=== PATIENT | female | born 1945 | race Two or more races ===

== ENCOUNTER 2023-02-17 19:10 | Inpatient (IN) | payer OTHER ==
[~2023-02-17] VITALS: Ht 152.4 cm; Wt 60.1 kg
[~2023-02-17 19:10] MED LIST: ACET-1080 PO; CARV12.544 PO; LEVO50TA7 PO; MEMA28CA15 PO
[2023-02-17 20:53] LABS: Urine Bacteria NONE SEEN /hpf (None Seen); Urine Blood Negative /uL (Negative); Urine Specific Gravity 1.002 (1.001-1.035); Urine WBC 2 /hpf (0 - 5)
[2023-02-17 21:12] LABS: Basophils # (auto) 0 10 ^3/uL (0-0.2); Basophils % (auto) 0.4 % (0.0-2.0); Eosinophils # (auto) 0.1 10 ^3/uL (0-0.8); Eosinophils % (auto) 2.4 % (0.0-7.0); Hematocrit 34.4 % (36.0-46.0); Hemoglobin 11.7 g/dL (12.2-16.2); Lymphocytes # (auto) 3.2 10 ^3/uL (0.4-5.4); Lymphocytes % (auto) 52.5 % (10.0-50.0); Mean Corpuscular Hemoglobin 29.3 pg (28.0-32.0); Mean Corpuscular Hgb Conc. 33.9 g/dL (32.0-36.0); Mean Corpuscular Volume 86.5 fL (80.0-100.0); Monocytes # (auto) 0.6 10 ^3/uL (0-1.3); Monocytes % (auto) 10.4 % (0.0-12.0); Neutrophils # (auto) 2.1 10 ^3/uL (1.6-8.6); Neutrophils % (auto) 34.3 % (37.0-80.0); Nucleated Red Blood Cells % 0.1 %; Red Blood Cells 3.98 10^6/uL (4.0-5.20); Red Cell Distribution Width 14.4 % (11.8-14.3); White Blood Cell 6.1 10^3/uL (4.4-10.8)
[2023-02-17 21:13] LABS: Albumin 3.4 g/dL (3.4-5.0); Calcium 10.4 mg/dL (8.5-10.1); Magnesium 1.8 mg/dL (1.6-2.6); Potassium 3.9 mmol/L (3.5-5.1)
[2023-02-17 21:16] LABS: BUN/Creatinine Ratio 20.9 (10.0-20.0); Bilirubin, Total 0.3 mg/dL (0.2-1.0); Total Protein 7.1 g/dL (6.4-8.2)
[2023-02-18] MEDS ORDERED: IOHEXOL 300 MG/ML 100ML BOTTLE IJ ONE (09:11)
[2023-02-18] MEDS ORDERED: MORPHINE SULFATE INJ 2 MG/ml SYRG IV PRN (09:30)
[2023-02-18] MEDS ORDERED: NITROGLYCERIN 0.4 MG SL TAB SL PRN (09:30)
[2023-02-18] MEDS: ENOXAPARIN SOD 40 MG/0.4 ML SYRINGE SC SCH (09:54)
[2023-02-18] MEDS: SODIUM CHLORIDE 0.9% 1,000 ML IV SCH (09:54)
[2023-02-18] MEDS: LEVOTHYROXINE SODIUM 50 MCG TAB PO SCH (09:55)
[2023-02-18] MEDS: MEMANTINE HCL 5 MG TAB PO SCH ×2 (09:55→22:52)
[2023-02-18] MEDS: CARVEDILOL 12.5 MG TAB PO SCH ×2 (09:58→22:00)
[2023-02-18] MEDS ORDERED: MEMANTINE HCL 28 MG PO SCH (10:00)
[2023-02-18 10:48] LABS: Free T3 2.55 pg/mL (2.3-4.2); Free T4 (Free Thyroxine) 1.17 ng/dL (0.89-1.76)
[2023-02-18 11:19] LABS: Cholesterol 171 mg/dL (< 200); HDL Cholesterol 66 mg/dL (40-59); LDL Cholesterol 92 mg/dL (< 100); Triglycerides 150 mg/dL (< 150)
[2023-02-18] MEDS: ACETAMINOPHEN 325 MG TAB PO PRN (17:44)
[2023-02-18 22:00] VITALS: BP 145/81
[2023-02-19 00:42] LABS: Folate (Folic Acid) 12.92 ng/mL (5.38-24)
[2023-02-19] MEDS: SODIUM CHLORIDE 0.9% 1,000 ML IV SCH (02:10)
[2023-02-19 03:21] VITALS: BP 145/81
[2023-02-19 05:11] VITALS: BP 154/87
[2023-02-19 07:11] LABS: Calcium 9.6 mg/dL (8.5-10.1); Potassium 3.9 mmol/L (3.5-5.1)
[2023-02-19 07:17] LABS: Albumin 2.9 g/dL (3.4-5.0); BUN/Creatinine Ratio 16.9 (10.0-20.0); Bilirubin, Total 0.7 mg/dL (0.2-1.0); Total Protein 6.3 g/dL (6.4-8.2)
[2023-02-19 08:10] LABS: Basophils # (auto) 0.1 10 ^3/uL (0-0.2); Basophils % (auto) 1.4 % (0.0-2.0); Eosinophils # (auto) 0.1 10 ^3/uL (0-0.8); Eosinophils % (auto) 2.4 % (0.0-7.0); Hematocrit 35.8 % (36.0-46.0); Hemoglobin 11.9 g/dL (12.2-16.2); Lymphocytes # (auto) 2.5 10 ^3/uL (0.4-5.4); Mean Corpuscular Hemoglobin 29.4 pg (28.0-32.0); Mean Corpuscular Hgb Conc. 33.1 g/dL (32.0-36.0); Mean Corpuscular Volume 88.6 fL (80.0-100.0); Monocytes # (auto) 0.5 10 ^3/uL (0-1.3); Monocytes % (auto) 10.3 % (0.0-12.0); Neutrophils % (auto) 37.9 % (37.0-80.0); Nucleated Red Blood Cells % 0.1 %; Red Blood Cells 4.04 10^6/uL (4.0-5.20); Red Cell Distribution Width 14.8 % (11.8-14.3); White Blood Cell 5.2 10^3/uL (4.4-10.8)
[2023-02-19 08:30] VITALS: BP 160/81
[2023-02-19] MEDS: ACETAMINOPHEN 325 MG TAB PO PRN (09:24)
[2023-02-19] MEDS: MEMANTINE HCL 5 MG TAB PO SCH (09:24)
[2023-02-19] MEDS: ENOXAPARIN SOD 40 MG/0.4 ML SYRINGE SC SCH (09:25)
[2023-02-19] MEDS: LEVOTHYROXINE SODIUM 50 MCG TAB PO SCH (09:25)
[2023-02-19 13:21] VITALS: BP 160/81
[2023-02-19] MEDS ORDERED: ASPI81TA10 PO (13:31)
[2023-02-19] MEDS ORDERED: AMOX500T86 PO (13:31)
[2023-02-19 16:53] VITALS: BP 146/84
== END 2023-02-19 17:10 | disposition home or self-care (01) | DRG 153 ==
LOC: ER 19:13 → TELE 02-18 09:30 → TELE-CENTR 02-18 23:02
PROVIDERS: ADMIT Registered Nurse; ATTEND Hospitalist
DX: H70.91 Unspecified mastoiditis, right ear (principal); G43.909 Migraine, unspecified, not intractable, without status migrainosus; E03.9 Hypothyroidism, unspecified; F03.90 Unspecified dementia, unspecified severity, without behavioral disturbance, psychotic disturbance, mood disturbance, and anxiety; H93.19 Tinnitus, unspecified ear; W01.190A Fall on same level from slipping, tripping and stumbling with subsequent striking against furniture, initial encounter; I11.0 Hypertensive heart disease with heart failure; R90.82 White matter disease, unspecified; W01.0XXA Fall on same level from slipping, tripping and stumbling without subsequent striking against object, initial encounter; Y93.89 Activity, other specified; Y92.89 Other specified places as the place of occurrence of the external cause; Y99.8 Other external cause status; Z79.899 Other long term (current) drug therapy; Z80.0 Family history of malignant neoplasm of digestive organs; Z82.49 Family history of ischemic heart disease and other diseases of the circulatory system; Z86.73 Personal history of transient ischemic attack (TIA), and cerebral infarction without residual deficits; Z90.49 Acquired absence of other specified parts of digestive tract
CPT/HCPCS: 36415; 70450; 70551; 71045; 71260; 80053; 80061; 81001; 82607; 82746; 83036; 83735; 83880; 84439; 84443; 84481; 84484; 85025; 93005; 93306; 93886; 95819; 96372; 97163; G0378

== ENCOUNTER 2024-02-07 13:36 | Emergency (ER) | payer OTHER, MEDICAID ==
[~2024-02-07] VITALS: Ht 142.2 cm; Wt 60.9 kg
[~2024-02-07 13:36] MED LIST changes: +ALBU108A5 IN; +AMOX500T86 PO; +ASPI81TA10 PO; +AUG875T PO
[2024-02-07 14:15] LABS: Alanine Aminotransferase 18 U/L (7-40); Albumin 4.1 g/dL (3.2-4.8); Alkaline Phosphatase 91 U/L (46-116); Anion Gap 8 (5-15); Aspartate Aminotransferase 16 U/L (13-40); BUN/Creatinine Ratio 11.5 (10.0-20.0); Blood Urea Nitrogen 9 mg/dL (9-23); Calcium 11.3 mg/dL (8.5-10.1); Carbon Dioxide 25 mmol/L (20-30); Chloride 107 mmol/L (98-107); Glucose 97 mg/dL (74-106); Potassium 3.8 mmol/L (3.5-5.1); Sodium 140 mmol/L (136-145)
[2024-02-07 14:16] LABS: Bilirubin, Total 0.4 mg/dL (0.2-1.0); Total Protein 6.3 g/dL (5.7-8.2)
[2024-02-07 14:36] LABS: Basophils # (auto) 0 10 ^3/uL (0-0.2); Basophils % (auto) 0.6 % (0.0-2.0); Eosinophils # (auto) 0 10 ^3/uL (0-0.8); Eosinophils % (auto) 0.5 % (0.0-7.0); Hematocrit 37.4 % (36.0-46.0); Hemoglobin 12.4 g/dL (12.2-16.2); Lymphocytes # (auto) 2.2 10 ^3/uL (0.4-5.4); Lymphocytes % (auto) 26.6 % (10.0-50.0); Mean Corpuscular Hemoglobin 30.3 pg (28.0-32.0); Mean Corpuscular Volume 91.7 fL (80.0-100.0); Monocytes # (auto) 0.7 10 ^3/uL (0-1.3); Monocytes % (auto) 8.9 % (0.0-12.0); Neutrophils # (auto) 5.3 10 ^3/uL (1.6-8.6); Neutrophils % (auto) 63.4 % (37.0-80.0); Nucleated Red Blood Cells % 0.1 %; Red Blood Cells 4.07 10^6/uL (4.0-5.20); White Blood Cell 8.3 10^3/uL (4.4-10.8)
[2024-02-07] MEDS: NITROGLYCERIN 0.4 MG SL TAB SL ONE (15:24)
[2024-02-07 15:26] VITALS: PULSE 19; RESP 97; O2SAT 97
[2024-02-07 15:43] LABS: Urine Bacteria None Seen /hpf (None Seen)
[2024-02-07 15:58] LABS: Urine Amorphous Crystal FEW /hpf (None Seen); Urine Blood Negative /uL (Negative); Urine Clarity Turbid (Clear); Urine Color Colorless (Yellow); Urine Protein, UAD Negative (Negative); Urine Specific Gravity 1.007 (1.001-1.035); Urine Urobilinogen Normal (Negative); Urine WBC 121 /hpf (0 - 5)
[2024-02-07] MEDS: SULFAMETHOX W/TRIMETH(800/160MG) DS TAB PO ONE (18:06)
[2024-02-07] MEDS ORDERED: ACET500T58 PO (18:08)
[2024-02-07] MEDS ORDERED: BACDST PO (18:08)
[2024-02-07] MEDS ORDERED: IBUP1TAB5 PO (18:08)
[2024-02-07 18:10] VITALS: BP 156/82; PULSE 72; RESP 17; TEMP 98.9; O2SAT 100
[2024-02-07] MEDS ORDERED: HYDROcodone-ACET 5/325MG TAB PO ONE (18:15)
== END 2024-02-07 18:15 | disposition home or self-care (01) ==
LOC: ER 13:36
DX: R07.89 Other chest pain (principal); N39.0 Urinary tract infection, site not specified; I11.0 Hypertensive heart disease with heart failure; I50.9 Heart failure, unspecified; M19.90 Unspecified osteoarthritis, unspecified site; K21.9 Gastro-esophageal reflux disease without esophagitis; F03.90 Unspecified dementia, unspecified severity, without behavioral disturbance, psychotic disturbance, mood disturbance, and anxiety; Z98.890 Other specified postprocedural states; Z79.899 Other long term (current) drug therapy
CPT/HCPCS: 36415; 71045; 80053; 81001; 84484; 93005

== ENCOUNTER 2024-02-20 10:17 | Inpatient (IN) | payer OTHER, MEDICAID ==
[~2024-02-20] VITALS: Ht 144.8 cm; Wt 53.8 kg
[~2024-02-20 10:17] MED LIST changes: +ACET500T58 PO; +BACDST PO; +IBUP1TAB5 PO
[2024-02-20 10:39] VITALS: PULSE 70; RESP 26; O2SAT 97
[2024-02-20 10:58] LABS: Basophils # (auto) 0.1 10 ^3/uL (0-0.2); Basophils % (auto) 0.8 % (0.0-2.0); Chloride 107 mmol/L (98-107); Eosinophils # (auto) 0 10 ^3/uL (0-0.8); Eosinophils % (auto) 0.5 % (0.0-7.0); Hemoglobin 12.2 g/dL (12.2-16.2); Lymphocytes # (auto) 2.3 10 ^3/uL (0.4-5.4); Lymphocytes % (auto) 35.2 % (10.0-50.0); Mean Corpuscular Hgb Conc. 33.1 g/dL (32.0-36.0); Mean Corpuscular Volume 93.5 fL (80.0-100.0); Monocytes # (auto) 0.6 10 ^3/uL (0-1.3); Monocytes % (auto) 8.9 % (0.0-12.0); Neutrophils # (auto) 3.6 10 ^3/uL (1.6-8.6); Neutrophils % (auto) 54.6 % (37.0-80.0); Nucleated Red Blood Cells % 0.1 %; Potassium 3.9 mmol/L (3.5-5.1); Red Blood Cells 3.95 10^6/uL (4.0-5.20); Sodium 137 mmol/L (136-145); White Blood Cell 6.7 10^3/uL (4.4-10.8)
[2024-02-20 10:59] LABS: Anion Gap 2 (5-15); Carbon Dioxide 28 mmol/L (20-30)
[2024-02-20 11:00] LABS: Calcium 11.8 mg/dL (8.5-10.1)
[2024-02-20 11:04] LABS: Blood Urea Nitrogen 16 mg/dL (9-23); Glucose 100 mg/dL (74-106)
[2024-02-20] MEDS ORDERED: ONDANSETRON HCL 4 MG/2 ML VIAL IV PRN (13:30)
[2024-02-20] MEDS ORDERED: ACETAMINOPHEN 325 MG TAB PO PRN (13:30)
[2024-02-20] MEDS ORDERED: MORPHINE SULFATE INJ 2 MG/ml SYRG IV PRN (13:30)
[2024-02-20] MEDS ORDERED: NITROGLYCERIN 0.4 MG SL TAB SL PRN (13:30)
[2024-02-20] MEDS: SOD CHL 0.45% 1,000 ML IV ONE (13:58)
[2024-02-20 13:59] LABS: Urine Bacteria FEW /hpf (None Seen); Urine Blood Negative /uL (Negative); Urine Budding Yeast OCCASIONAL /hpf (None Seen); Urine Clarity Clear (Clear); Urine Color Light-Yellow (Yellow); Urine Protein, UAD Negative (Negative); Urine Specific Gravity 1.007 (1.001-1.035); Urine Urobilinogen Normal (Negative); Urine WBC 33 /hpf (0 - 5); Urine WBC Clumps PRESENT /hpf (None Seen)
[2024-02-20 18:12] VITALS: BP 130/20; PULSE 70; RESP 18; TEMP 98.1; O2SAT 95
[2024-02-20 18:22] VITALS: BP 130/62; PULSE 70; RESP 18; TEMP 98.1; O2SAT 95
[2024-02-20 18:25] LABS: Free T4 (Free Thyroxine) 1.18 ng/dL (0.89-1.76)
[2024-02-20 18:26] LABS: Folate (Folic Acid) 19.38 ng/mL (>5.38)
[2024-02-20 20:00] VITALS: PULSE 77; PULSE 80; RESP 18
[2024-02-20 21:00] VITALS: BP 102/53; PULSE 80; RESP 18; TEMP 98.3; O2SAT 95
[2024-02-20] MEDS: MORPHINE SULFATE INJ 2 MG/ml SYRG IV PRN (22:56)
[2024-02-20] MEDS: diphenhdrAMINE HCL 50 MG/1 ML VL IV PRN (23:27)
[2024-02-21] VITALS (7 sets, daily range): BP systolic 107–131; BP diastolic 45–67; PULSE 62–71; RESP 14–18; TEMP 97–97.9; O2SAT 95–98
[2024-02-21] MEDS ORDERED: IOHEXOL 350 MG/ML 100ML IJ ONE (08:31)
[2024-02-21 09:06] LABS: RPR Non Reactive (Non Reactive)
[2024-02-21] MEDS: ENOXAPARIN SOD 40 MG/0.4 ML SYRINGE SC SCH (09:08)
[2024-02-21] MEDS: cefTRIAXone 1GM/50ML D5W 50 ML IV SCH (09:09)
[2024-02-21] MEDS: HYDROcodone-ACET 5/325MG TAB PO PRN (13:53)
[2024-02-23 10:01] LABS: Hepatitis B Surface Antigen Negative (Negative)
[2024-02-23 10:22] LABS: Hepatitis C Antibody Negative (Negative)
== END 2024-02-21 19:20 | disposition home health service (06) | DRG 206 ==
LOC: EDBD 10:17 → ER 10:17 → TELE 13:28 → TELE-EAST 18:21
PROVIDERS: ADMIT Internal Medicine; ATTEND Internal Medicine
DX: M94.0 Chondrocostal junction syndrome [Tietze] (principal); I24.9 Acute ischemic heart disease, unspecified; K21.9 Gastro-esophageal reflux disease without esophagitis; Z96.659 Presence of unspecified artificial knee joint; E03.9 Hypothyroidism, unspecified; G30.9 Alzheimer's disease, unspecified; F02.80 Dementia in other diseases classified elsewhere, unspecified severity, without behavioral disturbance, psychotic disturbance, mood disturbance, and anxiety; I50.9 Heart failure, unspecified; I11.0 Hypertensive heart disease with heart failure; E83.52 Hypercalcemia; Z79.1 Long term (current) use of non-steroidal anti-inflammatories (NSAID); Z79.899 Other long term (current) drug therapy; Z90.49 Acquired absence of other specified parts of digestive tract
CPT/HCPCS: 36415; 71045; 71275; 80048; 81001; 82607; 82746; 82962; 83880; 84439; 84443; 84484; 85025; 85379; 86592; 86803; 87340; 93005; 93306; 96360; 97163; G0378

== ENCOUNTER 2024-05-06 22:55 | Inpatient (IN) | payer OTHER, MEDICAID ==
[~2024-05-06] VITALS: Ht 165.1 cm; Wt 62.0 kg
[2024-05-07] VITALS (13 sets, daily range): BP systolic 123–157; BP diastolic 65–80; PULSE 74–95; RESP 16–20; TEMP 97.4–99.5; O2SAT 93–98
[2024-05-07] LABS: Basophils # (auto) 0 10 ^3/uL (0-0.2); Basophils % (auto) 0.4 % (0.0-2.0); Eosinophils # (auto) 0 10 ^3/uL (0-0.8); Eosinophils % (auto) 0.1 % (0.0-7.0); Hematocrit 37.9 % (36.0-46.0); Hemoglobin 12.7 g/dL (12.2-16.2); Lymphocytes # (auto) 1.4 10 ^3/uL (0.4-5.4); Lymphocytes % (auto) 16.8 % (10.0-50.0); Mean Corpuscular Hemoglobin 30.5 pg (28.0-32.0); Mean Corpuscular Hgb Conc. 33.4 g/dL (32.0-36.0); Mean Corpuscular Volume 91.3 fL (80.0-100.0); Monocytes # (auto) 0.7 10 ^3/uL (0-1.3); Monocytes % (auto) 8.9 % (0.0-12.0); Neutrophils # (auto) 5.9 10 ^3/uL (1.6-8.6); Neutrophils % (auto) 73.8 % (37.0-80.0); Red Blood Cells 4.15 10^6/uL (4.0-5.20); Red Cell Distribution Width 12.8 % (11.8-14.3); White Blood Cell 8.1 10^3/uL (4.4-10.8)
[2024-05-07 00:11] LABS: Chloride 102 mmol/L (98-107); Potassium 3.4 mmol/L (3.5-5.1); Sodium 133 mmol/L (136-145)
[2024-05-07 00:12] LABS: Anion Gap 8 (5-15); Calcium 10.7 mg/dL (8.7-10.4); Carbon Dioxide 23 mmol/L (20-30)
[2024-05-07 00:17] LABS: BUN/Creatinine Ratio 9.1 (10.0-20.0); Blood Urea Nitrogen 7 mg/dL (9-23); Glucose 127 mg/dL (74-106)
[2024-05-07] MEDS ORDERED: ACETAMINOPHEN 325 MG TAB PO PRN (03:30)
[2024-05-07] MEDS ORDERED: ALBUTEROL SULF 2.5 MG/0.5ML(0.5%) NEB SOLN NEB PRN (03:30)
[2024-05-07] MEDS ORDERED: MORPHINE SULFATE INJ 2 MG/ml SYRG IV PRN (03:30)
[2024-05-07] MEDS ORDERED: DOCUSATE SOD 100 MG CAP PO PRN (03:30)
[2024-05-07] MEDS ORDERED: ONDANSETRON HCL 4 MG/2 ML VIAL IV PRN (03:30)
[2024-05-07] MEDS ORDERED: NITROGLYCERIN 0.4 MG SL TAB SL PRN (03:30)
[2024-05-07] MEDS ORDERED: IPRATROPIUM BROM 0.5 MG/2.5ML INH SOL NEB PRN (03:30)
[2024-05-07 05:11] LABS: Rapid Influenza A Negative (Negative); Rapid Influenza B Negative (Negative)
[2024-05-07 05:14] LABS: COVID19 ANTIGEN SOFIA FIA POSITIVE (NEGATIVE)
[2024-05-07] MEDS: LEVOTHYROXINE SODIUM 50 MCG TAB PO SCH (07:07)
[2024-05-07] MEDS: MEMANTINE HCL 5 MG TAB PO SCH (08:38)
[2024-05-07] MEDS: ENOXAPARIN SOD 40 MG/0.4 ML SYRINGE SC SCH (08:39)
[2024-05-07] MEDS: SODIUM CHLORIDE 0.9% 250 ML IV ONE (10:00)
[2024-05-07 12:12] LABS: Basophils # (auto) 0.1 10 ^3/uL (0-0.2); Basophils % (auto) 0.8 % (0.0-2.0); Eosinophils # (auto) 0 10 ^3/uL (0-0.8); Eosinophils % (auto) 0.1 % (0.0-7.0); Hematocrit 35.2 % (36.0-46.0); Lymphocytes # (auto) 1.9 10 ^3/uL (0.4-5.4); Lymphocytes % (auto) 27.2 % (10.0-50.0); Mean Corpuscular Hgb Conc. 34.2 g/dL (32.0-36.0); Mean Corpuscular Volume 90.6 fL (80.0-100.0); Monocytes # (auto) 0.9 10 ^3/uL (0-1.3); Monocytes % (auto) 13.4 % (0.0-12.0); Neutrophils # (auto) 4.1 10 ^3/uL (1.6-8.6); Neutrophils % (auto) 58.5 % (37.0-80.0); Nucleated Red Blood Cells % 0.1 %; Red Blood Cells 3.88 10^6/uL (4.0-5.20); Red Cell Distribution Width 12.8 % (11.8-14.3)
[2024-05-07 12:19] LABS: Chloride 101 mmol/L (98-107); Potassium 3.5 mmol/L (3.5-5.1); Sodium 132 mmol/L (136-145)
[2024-05-07 12:20] LABS: Anion Gap 4 (5-15); Calcium 10.4 mg/dL (8.7-10.4); Carbon Dioxide 27 mmol/L (20-30)
[2024-05-07 12:25] LABS: BUN/Creatinine Ratio 13.5 (10.0-20.0); Blood Urea Nitrogen 10 mg/dL (9-23); Glucose 119 mg/dL (74-106)
[2024-05-07] MEDS: DexAMETHasone 4 MG TAB PO ONE (17:22)
[2024-05-07] MEDS: CARVEDILOL 12.5 MG TAB PO SCH (22:17)
[2024-05-08] VITALS (12 sets, daily range): BP systolic 101–137; BP diastolic 52–76; PULSE 62–84; RESP 15–20; TEMP 97.3–98; O2SAT 94–97
[2024-05-08 06:30] LABS: Basophils # (auto) 0 10 ^3/uL (0-0.2); Basophils % (auto) 0.7 % (0.0-2.0); Eosinophils # (auto) 0 10 ^3/uL (0-0.8); Eosinophils % (auto) 0.1 % (0.0-7.0); Hematocrit 38.7 % (36.0-46.0); Hemoglobin 13.1 g/dL (12.2-16.2); Lymphocytes % (auto) 21.9 % (10.0-50.0); Mean Corpuscular Hemoglobin 30.9 pg (28.0-32.0); Mean Corpuscular Hgb Conc. 33.8 g/dL (32.0-36.0); Mean Corpuscular Volume 91.3 fL (80.0-100.0); Monocytes # (auto) 0.2 10 ^3/uL (0-1.3); Monocytes % (auto) 4.1 % (0.0-12.0); Neutrophils # (auto) 3.2 10 ^3/uL (1.6-8.6); Neutrophils % (auto) 73.2 % (37.0-80.0); Nucleated Red Blood Cells % 0.4 %; Red Blood Cells 4.24 10^6/uL (4.0-5.20); Red Cell Distribution Width 12.6 % (11.8-14.3); White Blood Cell 4.4 10^3/uL (4.4-10.8)
[2024-05-08 06:44] LABS: Anion Gap 6 (5-15); Carbon Dioxide 26 mmol/L (20-30); Chloride 104 mmol/L (98-107); Potassium 4.2 mmol/L (3.5-5.1); Sodium 136 mmol/L (136-145)
[2024-05-08 06:46] LABS: Calcium 11.4 mg/dL (8.7-10.4)
[2024-05-08 06:50] LABS: BUN/Creatinine Ratio 17.3 (10.0-20.0); Blood Urea Nitrogen 13 mg/dL (9-23); Glucose 175 mg/dL (74-106)
[2024-05-08] MEDS: DexAMETHasone 4 MG TAB PO SCH (08:27)
[2024-05-08] MEDS: guaiFENesin-DM 100/10mg/5ml SYR PO PRN (16:40)
[2024-05-09] VITALS (8 sets, daily range): BP systolic 109–152; BP diastolic 72–88; PULSE 67–85; RESP 18–20; TEMP 97.9–98.3; O2SAT 95–97
[2024-05-09] MEDS: ALBUTEROL SULF HFA 90MCG INH 200DOSE IN PRN (07:22)
[2024-05-09] MEDS ORDERED: DEX4T PO (11:41)
[2024-05-09] MEDS ORDERED: FAMO-161 PO (11:41)
[2024-05-09] MEDS ORDERED: ALBU108A5 IN (11:41)
[2024-05-09 15:26] LABS: COVID19 ANTIGEN SOFIA FIA POSITIVE (NEGATIVE)
== END 2024-05-09 19:44 | disposition home or self-care (01) | DRG 178 ==
LOC: ER 22:55 → TELE 05-07 03:46 → TELE-WESTW 05-07 06:32
PROVIDERS: ADMIT Nurse Practitioner Family; ATTEND Hospitalist
DX: U07.1 COVID-19 (principal); E87.1 Hypo-osmolality and hyponatremia; I11.0 Hypertensive heart disease with heart failure; I50.9 Heart failure, unspecified; F03.90 Unspecified dementia, unspecified severity, without behavioral disturbance, psychotic disturbance, mood disturbance, and anxiety; E03.9 Hypothyroidism, unspecified; E87.6 Hypokalemia; K21.9 Gastro-esophageal reflux disease without esophagitis; R73.9 Hyperglycemia, unspecified; Z90.49 Acquired absence of other specified parts of digestive tract; Z80.42 Family history of malignant neoplasm of prostate; Z80.0 Family history of malignant neoplasm of digestive organs; Z82.49 Family history of ischemic heart disease and other diseases of the circulatory system
CPT/HCPCS: 36415; 71045; 80048; 83880; 84484; 85025; 87426; 87804; 94640; 97116; 97163; 97530; G0378

== ENCOUNTER 2025-09-03 20:47 | Inpatient (IN) | payer OTHER, MEDICAID ==
[~2025-09-03] VITALS: Ht 147.3 cm; Wt 61.0 kg
[~2025-09-03 20:47] MED LIST changes: -ACET500T58 PO; -AMOX500T86 PO; -ASPI81TA10 PO; -AUG875T PO; -BACDST PO; +DEX4T PO; +FAMO-161 PO; -IBUP1TAB5 PO
--- NOTE | 2025-09-03 21:14 | ED.PDOC ---
History of Present Illness HPI Comments 80-year-old female who came to ER for generalized weakness. Patient brought here by family members who will give history. Does have history of hypertension, congestive heart failure and dementia. About 3 hours ago, patient got mad, in about an hour ago prior to arrival, patient is started not talking and walking. Patient does not appear to be in any pain. Patient brought in because patient still refuses to talk or walk Chief Complaint: General Weakness Time Seen by MD: 21:14 Primary Care Provider: MUMTAZ Barron Notes: Nurses Notes Allergies: Coded Allergies: NO KNOWN ALLERGIES (Unverified , 10/13/19) Home Meds Active Scripts Albuterol Sulfate (Albuterol Sulfate Hfa) 108 Mcg/Act Aer, 108 MCG IN Q6HPRN PRN, #1 AER Prov:MARIE GANDARA MD 05/09/24 Famotidine (Pepcid AC) 20 Mg Tab, 20 MG PO DAILY, #14 TAB Prov:MARIE GANDARA MD 05/09/24 Dexamethasone (Decadron) 4 Mg Tb, 4 TAB PO DAILY, #5 TAB Prov:MARIE GANDARA MD 05/09/24 Reported Medications Acetaminophen (Tylenol 8 Hour Arthritis) 650 Mg Tab, 650 MG PO TIDP PRN for mi, TAB 10/13/19 Levothyroxine Sodium (Levothyroxine Sodium) 50 Mcg Tab, 50 MCG PO DAILY, TAB 10/13/19 Memantine HCl (Memantine Hydrochloride E) 28 Mg Cap, 28 MG PO DAILY, CAP 03/12/19 Carvedilol (Carvedilol) 12.5 Mg Tab, 12.5 MG PO Q12HR for 30 Days, MG 03/12/19 Information Source: Patient Mode of Arrival: Wheelchair Past Medical History PAST MEDICAL HISTORY: Arthritis, CHF, Dementia, GERD, HTN, Thyroid Surgical History: Cholecystectomy AFFILIATE MANAGER History: No Pertinent AFFILIATE MANAGER History Family History Family History: Reviewed,noncontributory to illness Social History Smoker: Non-Smoker Alcohol: Rarely Drugs: Denies Drug Use Lives In: Home Unable to Obtain due to: Dementia Physical Exam General Appearance: No Apparent Distress, Normal HEENT: Normal ENT Inspection, Pharynx Normal, TMs Normal Neck: Full Range of Motion, Non-Tender, Normal, Normal Inspection Respiratory: Chest Non-Tender, Lungs Clear, No Accessory Muscle Use, No Respiratory Distress, Normal Breath Sounds Cardiovascular: No Edema, No JVD, No Murmur, No Gallop, Normal Peripheral Pulses, Regular Rate/Rhythm Breast Exam: Deferred Gastrointestinal: No Organomegaly, Non Tender, No Pulsatile Mass, Normal Bowel Sounds, Soft Genitalia: Deferred Pelvic: Deferred Rectal: Deferred Extremities: No calf tenderness, Normal capillary refill, Normal inspection, Normal range of motion, Non-tender, No pedal edema Musculoskeletal : Apperance: Normal Neurologic: Alert, oil well services supervisor II-XII nml as Tested, No Motor Deficits, Normal Affect, Normal Mood, No Sensory Deficits Cerebellar Function: Normal Reflexes: Normal Skin: Dry, Normal Color, Warm Lymphatic: No Adenopathy Was a procedure done? Was a procedure done?: No Differential Dx Considerations may include: Anemia, electrolyte imbalance, UTI, dementia X-Ray, Labs, Meds, VS Vital Signs Date Time Temp Pulse Resp B/P (MAP) Pulse Ox O2 Delivery O2 Flow Rate FiO2 09/03/25 20:49 98.0 69 16 167/83 100 98.0 Lab Test 09/03/25 21:20 Range/Units White Blood Count 5.8 4.4-10.8 10^3/uL Red Blood Count 4.71 4.0-5.20 10^6/uL Hemoglobin 13.6 12.2-16.2 g/dL Hematocrit 41.3 36.0-46.0 % Mean Corpuscular Volume 87.8 80.0-100.0 fL Mean Corpuscular Hemoglobin 28.9 28.0-32.0 pg Mean Corpuscular Hemoglobin Concent 32.9 32.0-36.0 g/dL Red Cell Distribution Width 12.9 11.8-14.3 % Platelet Count 171 140-450 10^3/uL Mean Platelet Volume 8.0 6.9-10.8 fL Neutrophils (%) (Auto) 41.9 37.0-80.0 % Lymphocytes (%) (Auto) 45.3 10.0-50.0 % Monocytes (%) (Auto) 8.6 0.0-12.0 % Eosinophils (%) (Auto) 2.7 0.0-7.0 % Basophils (%) (Auto) 1.5 0.0-2.0 % Neutrophils # (Auto) 2.4 1.6-8.6 10 ^3/uL Lymphocytes # (Auto) 2.6 0.4-5.4 10 ^3/uL Monocytes # (Auto) 0.5 0-1.3 10 ^3/uL Eosinophils # (Auto) 0.2 0-0.8 10 ^3/uL Basophils # (Auto) 0.1 0-0.2 10 ^3/uL Nucleated Red Blood Cells 0.1 % Sodium Level 143 136-145 mmol/L Potassium Level 3.8 3.5-5.1 mmol/L Chloride Level 108 H 98-107 mmol/L Carbon Dioxide Level 25 20-31 mmol/L Anion Gap 10 5-15 Blood Urea Nitrogen 12 9-23 mg/dL Creatinine 0.76 0.550-1.02 mg/dL Glomerular Filtration Rate Calc 78 >90 mL/min BUN/Creatinine Ratio 15.8 10.0-20.0 Serum Glucose 92 74-106 mg/dL Calcium Level 11.5 H 8.7-10.4 mg/dL Troponin I High Sensitivity 5 </=34 ng/L Thyroid Stimulating Hormone (TSH) 2.99 0.55-4.78 uIU/mL Free Thyroxine (T4) Calculated Pending EXAM: XY CHEST PORTABLE HISTORY: altered TECHNIQUE: 1 view of the chest COMPARISON: CT CHEST WO on DOS: 03/04/25 FINDINGS/IMPRESSION: LUNGS: No pleural effusion, consolidation, or pneumothorax. peripheral interstitial edema. Correlate for volume overload MEDIASTINUM: Unchanged prominence of soft tissue density projecting along the right lateral margin of the lower thoracic trachea which may be related to the SVC BONES: No acute osseous abnormality. OTHER: None. Time of 1ST Reevaluation: 21:06 Reevaluation 1ST: Unchanged Patient Education/Counseling: Diagnosis, Treatment Family Education/Counseling: No Family Present Comments This is a patient who has a history of dementia was brought in by the daughter reporting for the past 3 hours patient has not been communicative. Patient it is able to track and responds to stimuli but appears to be apathetic and disinterested. She does move all extremities. She has no facial asymmetry. Bradley cortes appears generally weak but does not have any focal deficits. She will be admitted for altered mental status likely secondary to the underlying dementia condition, with unknown exacerbation trigger. SEPSIS Sepsis Screen Date sepsis recognized/suspect: Sep 03, 2025 Time Sepsis recognized/suspect: 2051 Recent Procedure: No On Antibiotic Therapy: No Respiratory Rate >20: No Heart Rate >90: No Temp<36 C (96.8 F) or >38.3 C: No SBP <90 or MAP <65 mmHG: No New Acute Mental Status Change: Yes Is the patient on CPAP, BIPAP,: No Physician Orders Chest Portable (09/03/25 21:12) Urinalysis (09/03/25 21:12) Free T4 (Free Thyroxine) (09/03/25 21:12) Vital Signs Date Time Temp Pulse Resp B/P (MAP) Pulse Ox O2 Delivery O2 Flow Rate FiO2 09/03/25 20:49 98.0 69 16 167/83 100 98.0 Laboratory Tests Test 09/03/25 21:20 White Blood Count 5.8 10^3/uL (4.4-10.8) Departure 1 Departure Time of Disposition: 23:46 Impression: Primary Impression: Generalized weakness Additional Impressions: Altered mental state Dementia Disposition: ADMITTED INPATIENT Admit to: Med Surg Condition: Stable Discharged With: Relative Critical Care Note Critical Care Time?: No Stability Stability form required: No Heart Score Heart Score: Heart Score Response (Comments) Value History N/A 0 EKG N/A 0 Age N/A 0 Risk Factors N/A 0 Troponin N/A 0 Total 0 I personally scribed for MORENO GARCIA MD ([email or web address]) on 09/03/25 at 21:14. Electronically submitted by Dwight Nicholson ([email or web address]). I personally scribed for MORENO GARCIA MD ([email or web address]) on 09/03/25 at 22:17. Electronically submitted by Dwight Nicholson ([email or web address]). MORENO GARCIA MD Sep 03, 2025 21:14
[2025-09-03 21:48] LABS: Hematocrit 41.3 % (36.0-46.0); Hemoglobin 13.6 g/dL (12.2-16.2); Mean Corpuscular Hemoglobin 28.9 pg (28.0-32.0); Mean Corpuscular Volume 87.8 fL (80.0-100.0); Nucleated Red Blood Cells % 0.1 %
[2025-09-03 22:00] LABS: Potassium 3.8 mmol/L (3.5-5.1); Sodium 143 mmol/L (136-145)
[2025-09-03 22:01] LABS: Anion Gap 10 (5-15); Carbon Dioxide 25 mmol/L (20-31)
[2025-09-03 22:06] LABS: BUN/Creatinine Ratio 15.8 (10.0-20.0); Blood Urea Nitrogen 12 mg/dL (9-23); Glucose 92 mg/dL (74-106)
[2025-09-03 22:08] LABS: Calcium 11.5 mg/dL (8.7-10.4); Chloride 108 mmol/L (98-107)
--- NOTE | 2025-09-03 22:08 | DVH ---
EXAM: XY CHEST PORTABLE HISTORY: altered TECHNIQUE: 1 view of the chest COMPARISON: CT CHEST WO on DOS: 03/04/25 FINDINGS/IMPRESSION: LUNGS: No pleural effusion, consolidation, or pneumothorax. peripheral interstitial edema. Correlate for volume overload MEDIASTINUM: Unchanged prominence of soft tissue density projecting along the right lateral margin of the lower thoracic trachea which may be related to the SVC BONES: No acute osseous abnormality. OTHER: None.
--- NOTE | 2025-09-04 01:01 | DVH ---
MEDICAL RECORDS NUMBER: [id number] PROCEDURE: CT HEAD WITHOUT CONTRAST Date: 09/04/2025 12:28 AM HISTORY: ams TECHNIQUE: Contiguous axial images were acquired from the skull base through to the vertex. CONTRAST: None COMPARISON: MRI BRAIN HEAD WO CONTRAST on DOS: 02/19/23, CT HEAD WITHOUT CONTRAST on DOS: 02/17/23 RADIATION DOSE INFORMATION: Automated exposure control dose reduction techniques were used. FINDINGS: Ventricles: Diffuse atrophy is noted. Hypodensity of the cerebral white matter suggests chronic small vessel ischemic changes. The ventricular system otherwise appears unremarkable. Masses: No mass effect is seen. Hemorrhage: No blood products are identified. Skull: The calvarium is intact. Sinuses: The paranasal sinuses are clear. Mastoids: No fluid is seen in the mastoid air cells. IMPRESSION: 1. No acute process is identified.
--- NOTE | 2025-09-04 03:30 | DVHHP2 ---
Admitting Diagnosis: Altered mental status, failure to thrive History of Present Illness History Source: Patient, Family Exam Limitations: Clinical condition HPI Mrs. Rachael Phan is an 80-year-old female with a history of hypertension, CHF, Dementia, GERD, Thyroid, arthritis who presents with generalized weakness. Patient brought here by daughter who stated patient got mad, in about an hour ago prior to arrival, patient started not talking and walking. Patient does not appear to be in any pain. Patient brought in because patient still refuses to talk or walk. Patient now speaking axo x 2. Patient reports she wasn't able to walk and has poor appetite. Patient daughter reports loose stools x4 while in the ED. Patient reports epigastric discomfort denies pain, nausea, vomiting, dys uria, chest pain, headaches, dizziness. Patient admitted for evaluation. Home Meds Active Scripts Albuterol Sulfate (Albuterol Sulfate Hfa) 108 Mcg/Act Aer, 108 MCG IN Q6HPRN PRN, #1 AER Prov:MARIE GANDARA MD 05/09/24 Famotidine (Pepcid AC) 20 Mg Tab, 20 MG PO DAILY, #14 TAB Prov:MARIE GANDARA MD 05/09/24 Dexamethasone (Decadron) 4 Mg Tb, 4 TAB PO DAILY, #5 TAB Prov:MARIE GANDARA MD 05/09/24 Reported Medications Acetaminophen (Tylenol 8 Hour Arthritis) 650 Mg Tab, 650 MG PO TIDP PRN for mi, TAB 10/13/19 Levothyroxine Sodium (Levothyroxine Sodium) 50 Mcg Tab, 50 MCG PO DAILY, TAB 10/13/19 Memantine HCl (Memantine Hydrochloride E) 28 Mg Cap, 28 MG PO DAILY, CAP 03/12/19 Carvedilol (Carvedilol) 12.5 Mg Tab, 12.5 MG PO Q12HR for 30 Days, MG 03/12/19 Past Medical History Cardiac: CHF, HTN Pulmonary: No pertinent Hx Central Nervous System: Dementia GI: GERD Hemotology/Oncology: No pertinent Hx Hepatobiliary: No pertinent Hx Psychiatric: No pertinent Hx Musculoskeletal: No pertinent Hx Rheumotologic: Other (Arthritis) Infectious Disease: No peritnent Hx ENT: No pertinent Hx Renal/: No pertinent Hx Endocrine: Hypothyroidism Dermatology: No pertinent Hx Patient Family History: FH: pancreatic cancer G8 MOTHER Hypertension G8 MOTHER Prostate carcinoma G8 FATHER Smoker: No Hx (Negative) Alocohol: None Drugs: None Lives with: With family Domestic Violence: Neg Review of Systems Constitutional: Weakness (generalized) Ears, Nose, & Throat: No symptom reported Eyes: No symptom reported Pulmonary/Respiratory: No symptom reported Cardiovascular: No symptom reported Gastrointestinal: No symptom reported Genitourinary: No symptom reported Musculoskeletal: No symptom reported Skin: No symptom reported Psychiatric: No symptom reported Endocrine: No symptom reported Hemotologic/Lymphatic: No symptom reported H&P Exam Vital Signs Vital Signs Date Time Temp Pulse Resp B/P (MAP) Pulse Ox O2 Delivery O2 Flow Rate FiO2 09/03/25 20:49 98.0 69 16 167/83 100 98.0 General Appeara: Well developed, Well nourished, Normal Appearance Head Exam: Normal inspection Neck Exam: Normal inspection, Non-tender, Normal alignment Eye Exam: bilateral eye Normal inspection, bilateral eye PERRL, bilateral eye EOMI Ear Exam: bilateral ear Auricle normal Nasal Exam: Normal inspection Mouth: Normal Inspection Pulmonary/Respiratory: Normal inspection, Normal breath sounds, Chest non- tender, Lungs clear Cardiovascular/Chest: Normal inspection, Regular rate, Normal Rhythm Peripheral Pulses: 2+ dorsalis pedis (R), 2+ dorsalis pedis (L), 2+ Radial (R), 2+ Radial (L) Abdominal Exam: Normal bowel sounds, Soft, No tenderness RN PERIOPERATIVE Exam: Normal hearing, Normal speech, PERRL Motor/Sensory: Normal sensory function, Normal motor function Neuro/Mental St: Alert, Oriented (x2 ) Appearance: Appropriate appearance, Memory impairment Eye contact/ Speech: Cooperative, Good eye contact, Normal speech Skin Exam: Normal inspection, Normal color, Warm/dry SEPSIS Sepsis Screen Date sepsis recognized/suspect: Sep 03, 2025 Time Sepsis recognized/suspect: 2051 Recent Procedure: No On Antibiotic Therapy: No Respiratory Rate >20: No Heart Rate >90: No Temp<36 C (96.8 F) or >38.3 C: No SBP <90 or MAP <65 mmHG: No New Acute Mental Status Change: Yes Is the patient on CPAP, BIPAP,: No Physician Orders Chest Portable (09/03/25 21:12) Urinalysis (09/03/25 21:12) Free T4 (Free Thyroxine) (09/03/25 21:12) Head Without Contrast (09/04/25 00:20) Urinalysis (09/04/25 00:20) Admit (09/04/25 03:17) * Supervisor Nutritional Yeast Consult (09/04/25 ) Full Code (09/04/25 03:17) Ammonia (09/04/25 03:17) * Dietary Consult (09/04/25 03:17) Strict Aspiration Precautions (09/04/25 03:17) Stat Ekg For Chest Pain (09/04/25 03:17) Notify Md Of Changes From Base (09/04/25 03:17) Cutter Inspector For 24 Hours (09/04/25 03:17) Emergency Dysrhythmia Protocol (09/04/25 03:17) Rhythm Strips Once Every Shift (09/04/25 03:17) Oxygen By Nasal Cannula (09/04/25 03:17) Pantoprazole (Protonix) (09/04/25 10:00) Acetaminophen Tablet (Tylenol Tablet) (09/04/25 03:30) Pt Request For Service (09/04/25 03:21) Vital Signs Date Time Temp Pulse Resp B/P (MAP) Pulse Ox O2 Delivery O2 Flow Rate FiO2 09/03/25 20:49 98.0 69 16 167/83 100 98.0 Laboratory Tests Test 09/03/25 21:20 White Blood Count 5.8 10^3/uL (4.4-10.8) Labs/Xrays Labs Test 09/03/25 21:20 Range/Units White Blood Count 5.8 4.4-10.8 10^3/uL Red Blood Count 4.71 4.0-5.20 10^6/uL Hemoglobin 13.6 12.2-16.2 g/dL Hematocrit 41.3 36.0-46.0 % Mean Corpuscular Volume 87.8 80.0-100.0 fL Mean Corpuscular Hemoglobin 28.9 28.0-32.0 pg Mean Corpuscular Hemoglobin Concent 32.9 32.0-36.0 g/dL Red Cell Distribution Width 12.9 11.8-14.3 % Platelet Count 171 140-450 10^3/uL Mean Platelet Volume 8.0 6.9-10.8 fL Neutrophils (%) (Auto) 41.9 37.0-80.0 % Lymphocytes (%) (Auto) 45.3 10.0-50.0 % Monocytes (%) (Auto) 8.6 0.0-12.0 % Eosinophils (%) (Auto) 2.7 0.0-7.0 % Basophils (%) (Auto) 1.5 0.0-2.0 % Neutrophils # (Auto) 2.4 1.6-8.6 10 ^3/uL Lymphocytes # (Auto) 2.6 0.4-5.4 10 ^3/uL Monocytes # (Auto) 0.5 0-1.3 10 ^3/uL Eosinophils # (Auto) 0.2 0-0.8 10 ^3/uL Basophils # (Auto) 0.1 0-0.2 10 ^3/uL Nucleated Red Blood Cells 0.1 % Sodium Level 143 136-145 mmol/L Potassium Level 3.8 3.5-5.1 mmol/L Chloride Level 108 H 98-107 mmol/L Carbon Dioxide Level 25 20-31 mmol/L Anion Gap 10 5-15 Blood Urea Nitrogen 12 9-23 mg/dL Creatinine 0.76 0.550-1.02 mg/dL Glomerular Filtration Rate Calc 78 >90 mL/min BUN/Creatinine Ratio 15.8 10.0-20.0 Serum Glucose 92 74-106 mg/dL Calcium Level 11.5 H 8.7-10.4 mg/dL Troponin I High Sensitivity 5 </=34 ng/L Thyroid Stimulating Hormone (TSH) 2.99 0.55-4.78 uIU/mL Assessment/Plan Problem List: (1) Failure to thrive (2) Altered mental state (3) Dementia (4) Generalized weakness (5) UTI (urinary tract infection) Plan This is an 80 yo female with known history of hypertension, CHF, GERD, thyroid disease, dementia, Alzheimer's disease who presents with generalized weakness and failure to thrive. 1. Altered mental status 2. Failure to thrive 3. Generalized weakness 4. UTI 5. Hypertension 6. CHF without exacerbation 7. GERD 8. Thyroid disease Plan Admit Telemetry Social service consultation Dietary consultation PT evaluation GI ppx Aspiration precautions Fall precautions Urine culture IV abx Discussed all above with patient and patient daughter in Lao, both verbalized agreement and understanding of care plan. All questions were answered. Discussed with supervising MD. Plan discussed with: Patient, Daughter, Other Code Visit Code Visit Total Time (mins): 45 CHRISTA NAYLOR Sep 04, 2025 03:30 ZEKE MANNING MD Sep 04, 2025 17:15
[2025-09-04 05:09] LABS: Urine Protein, UAD Negative (Negative)
[2025-09-04 06:07] VITALS: RESP 14; TEMP 98
[2025-09-04 08:00] VITALS: PULSE 73; RESP 12; O2SAT 96
[2025-09-04] MEDS: PANTOPRAZOLE 40 MG/10 ML VIAL INJ IV SCH (12:14)
--- NOTE | 2025-09-04 12:55 | DVHPN2 ---
Changes from previous H/P or p: No Changes Objective Vitals Vital Signs Date Time Temp Pulse Resp B/P (MAP) Pulse Ox O2 Delivery O2 Flow Rate FiO2 09/04/25 10:00 75 17 118/58 (78) 97 09/04/25 08:00 97.7 97.7 09/04/25 06:07 Room Air* 0 21 Medications Current Medications Medications Dose Ordered Sig/Andriy Route Start Time Stop Time Status Last Admin Dose Admin Pantoprazole Sodium 40 mg DAILY IV 09/04/25 10:00 09/04/25 12:14 40 MG Acetaminophen 650 mg Q6HPRN PRN PO 09/04/25 03:30 Ceftriaxone Sodium 50 ml @ 100 mls/hr DAILY@09 IV 09/04/25 09:00 09/04/25 12:14 100 MLS/HR Laboratory Results Laboratory Tests 09/03/25 21:20 Chemistry Test 09/03/25 21:20 Calcium Level 11.5 mg/dL (8.7-10.4) H HgA1c, TSH Test 09/03/25 21:20 Thyroid Stimulating Hormone (TSH) 2.99 uIU/mL (0.55-4.78) Urinalysis Test 09/04/25 04:27 Urine Color Yellow (Yellow) Urine Clarity Clear (Clear) Urine pH 6.0 (5.0-9.0) Urine Specific [place] 1.018 (1.001-1.035) Urine Protein Negative (Negative) Urine Ketones Negative (Negative) Urine Blood Trace /uL (Negative) H Urine Nitrite Negative (Negative) Urine Bilirubin Negative (Negative) Urine Urobilinogen Normal mg/dL (Negative) Urine Leukocyte Esterase 1+ /uL (Negative) Urine RBC 3 /hpf (0 - 4) Urine Microscopic WBC 8 /HPF (0-5) H Urine Squamous Epithelial Cells Few /hpf (<5) Urine Renal Epithelial Cells Few /hpf (None Seen) Urine Bacteria Few /hpf (None Seen) H Urine Mucus Few (None Seen) Urine Glucose Normal mg/dL (Normal) Labs and/or images reviewed: Labs reviewed by me, Image(s) reviewed by me Assessment/Plan Assessment/Plan Acute generalized weakness Sepsis secondary to urinary tract infection: Urine cultures Rocephin Hypotension Dementia History of congestive heart failure GERD Chest x-ray negative CT head negative Flu test pending COVID test pending Time Spent 66 minutes Advanced care time 20 minutes Patient is full code Plan discussed with: Patient My Orders Orders - VU LI MD Procedure Category Date Status Time Covid19 Antigen [facility] 09/04/25 Verified Rapid Influenza A&B LAB 09/04/25 Verified 12:53 Date of Service: Sep 04, 2025 Billing Provider: VU LI MD Common Visit Codes: [id number] INP/OBS CARE(HIGH) VU LI MD Sep 04, 2025 12:55
[2025-09-04 16:47] LABS: COVID19 ANTIGEN SOFIA FIA NEGATIVE (NEGATIVE)
[2025-09-04 19:20] VITALS: PULSE 97; RESP 18; O2SAT 96
[2025-09-05 01:00] VITALS: BP 138/74; PULSE 95; RESP 18; O2SAT 97
[2025-09-05 05:00] VITALS: BP 128/72; PULSE 92; RESP 18; TEMP 99.2; O2SAT 97
[2025-09-05] MEDS: ACETAMINOPHEN 325 MG TAB PO PRN (08:50)
[2025-09-05 10:09] VITALS: TEMP 98.6
[2025-09-05] MEDS ORDERED: CEPH500C PO (15:50)
--- NOTE | 2025-09-05 15:55 | DVHDS2 ---
Discharge Summary Date of Admission Sep 04, 2025 at 03:17 Date of Discharge: Sep 05, 2025 Labs/Diagnostic Data: Laboratory Results Test 09/05/25 14:35 09/04/25 13:15 09/04/25 04:27 09/04/25 03:28 Influenza Type A Antigen Negative (Negative) Influenza Type B Antigen Negative (Negative) SARS-CoV-2 Antigen (Rapid) Negative (NEGATIVE) Urine Color Yellow (Yellow) Urine Clarity Clear (Clear) Urine pH 6.0 (5.0-9.0) Urine Specific [place] 1.018 (1.001-1.035) Urine Protein Negative (Negative) Urine Ketones Negative (Negative) Urine Blood Trace /uL (Negative) Urine Nitrite Negative (Negative) Urine Bilirubin Negative (Negative) Urine Urobilinogen Normal mg/dL (Negative) Urine Leukocyte Esterase 1+ /uL (Negative) Urine RBC 3 /hpf (0 - 4) Urine Microscopic WBC 8 /HPF (0-5) Urine Squamous Epithelial Cells Few /hpf (<5) Urine Renal Epithelial Cells Few /hpf (None Seen) Urine Bacteria Few /hpf (None Seen) Urine Mucus Few (None Seen) Urine Glucose Normal mg/dL (Normal) Ammonia < 10 umol/L (11-32) Test 09/03/25 21:20 White Blood Count 5.8 10^3/uL (4.4-10.8) Red Blood Count 4.71 10^6/uL (4.0-5.20) Hemoglobin 13.6 g/dL (12.2-16.2) Hematocrit 41.3 % (36.0-46.0) Mean Corpuscular Volume 87.8 fL (80.0-100.0) Mean Corpuscular Hemoglobin 28.9 pg (28.0-32.0) Mean Corpuscular Hemoglobin Concent 32.9 g/dL (32.0-36.0) Red Cell Distribution Width 12.9 % (11.8-14.3) Platelet Count 171 10^3/uL (140-450) Mean Platelet Volume 8.0 fL (6.9-10.8) Neutrophils (%) (Auto) 41.9 % (37.0-80.0) Lymphocytes (%) (Auto) 45.3 % (10.0-50.0) Monocytes (%) (Auto) 8.6 % (0.0-12.0) Eosinophils (%) (Auto) 2.7 % (0.0-7.0) Basophils (%) (Auto) 1.5 % (0.0-2.0) Neutrophils # (Auto) 2.4 10 ^3/uL (1.6-8.6) Lymphocytes # (Auto) 2.6 10 ^3/uL (0.4-5.4) Monocytes # (Auto) 0.5 10 ^3/uL (0-1.3) Eosinophils # (Auto) 0.2 10 ^3/uL (0-0.8) Basophils # (Auto) 0.1 10 ^3/uL (0-0.2) Nucleated Red Blood Cells 0.1 % Sodium Level 143 mmol/L (136-145) Potassium Level 3.8 mmol/L (3.5-5.1) Chloride Level 108 mmol/L (98-107) Carbon Dioxide Level 25 mmol/L (20-31) Anion Gap 10 (5-15) Blood Urea Nitrogen 12 mg/dL (9-23) Creatinine 0.76 mg/dL (0.550-1.02) Glomerular Filtration Rate Calc 78 mL/min (>90) BUN/Creatinine Ratio 15.8 (10.0-20.0) Serum Glucose 92 mg/dL (74-106) Calcium Level 11.5 mg/dL (8.7-10.4) Troponin I High Sensitivity 5 ng/L (</=34) Thyroid Stimulating Hormone (TSH) 2.99 uIU/mL (0.55-4.78) Free Thyroxine (T4) Calculated 1.20 ng/dL (0.89-1.76) Other Laboratory Tests 09/03/25 21:20 Brief Hx & Hospital Course: This is an 80 yo female with known history of hypertension, CHF, GERD, thyroid disease, dementia, Alzheimer's disease who presents with generalized weakness and failure to thrive. Patient was found to have mild UTI. Which was treated with the IV antibiotics which will be switched to p.o. antibiotics. Patient will be discharged home with the home health home safety evaluation and home PT if indicated. Condition at Discharge: Stable Final Diagnosis/Problems List This is an 80 yo female with known history of hypertension, CHF, GERD, thyroid disease, dementia, Alzheimer's disease who presents with generalized weakness and failure to thrive. 1. Altered mental status 2. Failure to thrive 3. Generalized weakness 4. UTI 5. Hypertension 6. CHF without exacerbation 7. GERD 8. Thyroid disease Discharge Disposition: Home with Health Services SNF Discharge Will this Physician continue t: No Discharge Instruct/Medications Diet: Cardiac 2g Na,low cholest Activity: No Restrictions, As Tolerated Follow Up/Referral: Please follow up with the PCP in 1-2 weeks Also PCP to follow up on the urine Medications: Keflex as prescribed, resume home medications. New Medications: Cephalexin Monohydrate (Cephalexin) 500 Mg Cap 1 CAP PO TID for 3 Days, #9 CAP Continued Medications: Acetaminophen (Tylenol 8 Hour Arthritis) 650 Mg Tab 650 MG PO TIDP PRN for mi, TAB Albuterol Sulfate (Albuterol Sulfate Hfa) 108 Mcg/Act Aer 108 MCG IN Q6HPRN PRN, #1 AER Carvedilol (Carvedilol) 12.5 Mg Tab 12.5 MG PO Q12HR for 30 Days, MG Famotidine (Pepcid AC) 20 Mg Tab 20 MG PO DAILY, #14 TAB Levothyroxine Sodium (Levothyroxine Sodium) 50 Mcg Tab 50 MCG PO DAILY, TAB Memantine HCl (Memantine Hydrochloride E) 28 Mg Cap 28 MG PO DAILY, CAP Discontinued Medications: Dexamethasone (Decadron) 4 Mg Tb 4 TAB PO DAILY, #5 TAB Scheduled Carvedilol (Carvedilol), 12.5 MG PO Q12HR, (Reported) Cephalexin Monohydrate (Cephalexin), 1 CAP PO TID Dexamethasone (Decadron), 4 TAB PO DAILY Famotidine (Pepcid AC), 20 MG PO DAILY Levothyroxine Sodium (Levothyroxine Sodium), 50 MCG PO DAILY, (Reported) Memantine HCl (Memantine Hydrochloride E), 28 MG PO DAILY, (Reported) Scheduled PRN Acetaminophen (Tylenol 8 Hour Arthritis), 650 MG PO TIDP PRN for mi, (Reported) Albuterol Sulfate (Albuterol Sulfate Hfa), 108 MCG IN Q6HPRN PRN Discharge Statement: "Patient was advised to return to the ER or call 911 if any headaches, dizziness, shortness of breath, chest pain, abdominal pain, bleeding, fevers, or worsening of medical condition. Patient was counseled about treatment plan, medications, possible side effects, patientverbalized understanding. All questions were answered to the best of my ability. This discharge took greater then 30 minutes in planning, reviewing documentation, counseling the patient, and discussing with other team members." ASSESSMENT ASSESSMENT Assessment This is an 80 yo female with known history of hypertension, CHF, GERD, thyroid disease, dementia, Alzheimer's disease who presents with generalized weakness and failure to thrive. 1. Altered mental status 2. Failure to thrive 3. Generalized weakness 4. UTI 5. Hypertension 6. CHF without exacerbation 7. GERD 8. Thyroid disease Date of Service: Sep 05, 2025 Billing Provider: ZEKE MANNING MD Common Visit Codes: NOT BILLABLE ZEKE MANNING MD Sep 05, 2025 15:55
[2025-09-05 15:58] VITALS: BP 156/90; PULSE 89; RESP 14; O2SAT 98
== END 2025-09-05 16:30 | disposition home health service (06) | DRG 689 ==
LOC: ER 20:47 → OVERFLOW 09-04 03:17
PROVIDERS: ADMIT Internal Medicine; ATTEND Internal Medicine
DX: N30.01 Acute cystitis with hematuria (principal); G93.41 Metabolic encephalopathy; I50.32 Chronic diastolic (congestive) heart failure; R62.7 Adult failure to thrive; I11.0 Hypertensive heart disease with heart failure; E03.9 Hypothyroidism, unspecified; F02.80 Dementia in other diseases classified elsewhere, unspecified severity, without behavioral disturbance, psychotic disturbance, mood disturbance, and anxiety; K21.9 Gastro-esophageal reflux disease without esophagitis; G30.9 Alzheimer's disease, unspecified; Z90.49 Acquired absence of other specified parts of digestive tract; Z80.0 Family history of malignant neoplasm of digestive organs; Z82.49 Family history of ischemic heart disease and other diseases of the circulatory system; Z79.899 Other long term (current) drug therapy; Z68.28 Body mass index [BMI] 28.0-28.9, adult
CPT/HCPCS: 36415; 70450; 71045; 80048; 81001; 82140; 84439; 84443; 84484; 85025; 85048; 87045; 87086; 87426; 87427; 87493; 87804; 97163; G0378; J2470